=== PATIENT | male | born 1985 | race Caucasian/White ===

== ENCOUNTER 2019-09-11 08:05 | Emergency (ER) | payer SELFPAY ==
[2019-09-11] MEDS ORDERED: Acetaminophen 500 MG TAB ONE (08:32)
[2019-09-11] MEDS ORDERED: Benzonatate 100 MG CAP ONE (08:32)
== END 2019-09-11 09:00 | disposition home or self-care (01) ==
LOC: MADERS 08:05
DX: J11.1 Influenza due to unidentified influenza virus with other respiratory manifestations (principal)
CPT/HCPCS: 87804; 99283

== ENCOUNTER 2019-09-16 09:28 | Emergency (ER) | payer SELFPAY ==
[2019-09-16] MEDS ORDERED: traMADol HCl 50 MG TAB ONE (09:56)
[2019-09-16] MEDS ORDERED: predniSONE 20 MG TAB ONE (09:56)
[2019-09-16] MEDS ORDERED: cefTRIAXone\\ROCEPHIN 1 GM VIAL ONE (09:56)
[2019-09-16] MEDS ORDERED: Lidocaine 1% 20 ML MDV ONE (09:56)
== END 2019-09-16 10:14 | disposition home or self-care (01) ==
LOC: MADERS 09:28
DX: H65.92 Unspecified nonsuppurative otitis media, left ear (principal)
CPT/HCPCS: 99282; J0696; J2001; J7512